=== PATIENT | male | born 1950 | race Hispanic/Latino ===

== ENCOUNTER 2018-08-27 16:09 | Emergency (ER) | payer OTHER, MEDICARE ==
[2018-08-27 17:53] LABS: BASOPHILS % (AUTO) 0.5 % (0.0-5.0); EOSINOPHILS % (AUTO) 0.6 % (0.0-8.0); HEMATOCRIT 46.8 % (42-54); LYMPHOCYTES % (AUTO) 18.2 % (21.0-51.0); MEAN CORPUSCULAR HEMOGLOBIN 29.8 pg (27.0-33.0); MEAN CORPUSCULAR HGB CONC 34.2 g/dL (32.0-36.0); MONOCYTES % (AUTO) 6.9 % (3.0-13.0); NEUTROPHILS % (AUTO) 73.8 % (40.0-77.0); NUCLEATED RED BLOOD CELLS 0.1 % (0.0-0.19); PLATELET COUNT (AUTO) 224 K/uL (130-400); RED BLOOD CELL COUNT(AUTO) 5.39 MIL/uL (4.50-6.20); RED CELL DISTRIBUTION WIDTH 13.3 % (11.0-15.5); WHITE BLOOD COUNT (AUTO) 10.6 K/uL (4.8-10.8)
[2018-08-27 18:01] LABS: APPEARANCE,URINE Cloudy (CLEAR); BILIRUBIN,URINE Negative (NEGATIVE); COLOR,URINE Red (YELLOW); GLUCOSE, URINE (UA) Negative (NEGATIVE); KETONES,URINE Negative (NEGATIVE); LEUKOCYTE ESTERASE ,URINE Moderate (NEGATIVE); NITRATE,URINE Negative (NEGATIVE); OCCULT BLOOD,URINE Large (NEGATIVE); PROTEIN,URINE 300 (NEGATIVE); UROBILINOGEN,URINE 0.2 mg/dL (0.2-1.0)
[2018-08-27 18:10] LABS: BACTERIA,URINE Few /HPF (None Seen); RBC,URINE Full Field /HPF (0-1); WBC,URINE 26-50 /HPF (0-1)
[2018-08-27 18:11] LABS: SQUAMOUS EPITHELIAL CELL,UR None Seen /HPF (0-2)
[2018-08-27 18:14] LABS: CREATININE 0.7 mg/dL (0.5-1.5); INR 0.97 (0.85-1.15); PARTIAL THROMBOPLASTIN TIME 29.2 SEC (26.3-35.5); POTASSIUM 3.1 mmol/L (3.5-5.1); PROTHROMBIN TIME 10.2 SEC (9.6-11.6)
[2018-08-27 18:19] LABS: ALBUMIN 3.8 g/dL (3.5-5.0); BILIRUBIN,TOTAL 0.4 mg/dL (0.2-1.0); TOTAL PROTEIN, SERUM 7.6 g/dL (6.0-8.3)
[2018-08-27] MEDS ORDERED: CEFTRIAXONE SODIUM 1 GM ONE (18:38)
[2018-08-27] MEDS ORDERED: POTASSIUM BICARB/CIT AC 25 MEQ TABLET.EFF ONE (19:14)
== END 2018-08-27 19:59 | disposition home or self-care (01) ==
LOC: EDH 16:09
DX: N13.30 Unspecified hydronephrosis (principal); E87.6 Hypokalemia; R31.9 Hematuria, unspecified; E11.9 Type 2 diabetes mellitus without complications; I10 Essential (primary) hypertension; Z87.442 Personal history of urinary calculi; Z98.890 Other specified postprocedural states; Z88.2 Allergy status to sulfonamides
CPT/HCPCS: 36415; 74176; 80053; 81001; 85025; 85610; 85730; 87088; 96374; 99284; J0696

== ENCOUNTER 2019-10-17 13:47 | Emergency (ER) | payer OTHER ==
[~2019-10-17 13:47] MED LIST: BACL20TA PO; CLON0.2T PO; FERR325T22 PO; GLIM2TAB30 PO; LISI40TA4 PO; METF-444 PO; NITR100C PO; SIMV40TA59 PO; TAMS-1 PO
[2019-10-17] MEDS ORDERED: NAPROXEN 500 MG TABLET ONE (15:11)
== END 2019-10-17 15:43 | disposition home or self-care (01) ==
LOC: EDH 13:47
DX: S63.8X1A Sprain of other part of right wrist and hand, initial encounter (principal); E11.9 Type 2 diabetes mellitus without complications; I10 Essential (primary) hypertension; Z88.0 Allergy status to penicillin; X50.1XXA Overexertion from prolonged static or awkward postures, initial encounter; Y93.89 Activity, other specified; Y92.098 Other place in other non-institutional residence as the place of occurrence of the external cause; Y99.8 Other external cause status
CPT/HCPCS: 73130

== ENCOUNTER → 2019-11-13 | Outpatient (CLI) | payer OTHER | END | disposition home or self-care (01) | LOC: RAH 15:09 | PROVIDERS: ATTEND Family Medicine | DX: N28.1 Cyst of kidney, acquired (principal); N13.30 Unspecified hydronephrosis; N40.0 Benign prostatic hyperplasia without lower urinary tract symptoms; Z87.440 Personal history of urinary (tract) infections | CPT/HCPCS: 76770 ==

== ENCOUNTER → 2020-02-19 | Outpatient (CLI) | payer OTHER | END | disposition home or self-care (01) | LOC: RAH 13:18 | PROVIDERS: ATTEND Family Medicine | DX: N50.3 Cyst of epididymis (principal); N43.3 Hydrocele, unspecified | CPT/HCPCS: 76870 ==

== ENCOUNTER 2020-05-10 06:19 | Day surgery (SDC) | payer OTHER, MEDICARE ==
[2020-05-07 12:04] LABS: BASOPHILS % (AUTO) 0.6 % (0.0-5.0); EOSINOPHILS % (AUTO) 2.8 % (0.0-8.0); HEMATOCRIT 43.4 % (42-54); LYMPHOCYTES % (AUTO) 32.8 % (21.0-51.0); MEAN CORPUSCULAR HEMOGLOBIN 29.4 pg (27.0-33.0); MEAN CORPUSCULAR HGB CONC 32.7 g/dL (32.0-36.0); MEAN CORPUSCULAR VOLUME 89.9 fL (79-99); MONOCYTES % (AUTO) 8.2 % (3.0-13.0); NEUTROPHILS % (AUTO) 55.3 % (40.0-77.0); PLATELET COUNT (AUTO) 241 K/uL (130-400); RED BLOOD CELL COUNT(AUTO) 4.83 MIL/uL (4.50-6.20); RED CELL DISTRIBUTION WIDTH 13.4 % (11.0-15.5); WHITE BLOOD COUNT (AUTO) 6.8 K/uL (4.8-10.8)
[2020-05-07 12:40] LABS: CREATININE 0.8 mg/dL (0.5-1.5); POTASSIUM 3.8 mmol/L (3.5-5.1)
[2020-05-09 11:43] VITALS: BP 143/75
[~2020-05-10] VITALS: Ht 170.2 cm; Wt 82.2 kg
[2020-05-10] VITALS (18 sets, daily range): BP systolic 137–173; BP diastolic 75–98
[~2020-05-10 06:19] MED LIST changes: +ALFUZOSIN PO; +ASPI-1197 PO; -BACL20TA PO; +CEFTRIAXONE SODIUM 1 GM IVP SCH; -CLON0.2T PO; -FERR325T22 PO; -NITR100C PO; -SIMV40TA59 PO; -TAMS-1 PO
[2020-05-10] MEDS ORDERED: LIDOCAINE PF 2% 5ML ABBOJECT ONE (08:17)
[2020-05-10] MEDS ORDERED: FENTANYL CITRATE PF 50 MCG/1 ML 2ML VIAL ONE (08:17)
[2020-05-10] MEDS ORDERED: SUCCINYLCHOLINE 200MG/10ML SYR ONE (08:17)
[2020-05-10] MEDS ORDERED: ROCURONIUM 10MG/1ML SYR 10 MG/ML ML ONE (08:17)
[2020-05-10] MEDS ORDERED: PROPOFOL 10 MG/ML 20ML VIAL IV ONE (08:17)
[2020-05-10] MEDS ORDERED: NEOSTIGMINE 5MG/5ML SYR IV ONE (09:22)
[2020-05-10] MEDS ORDERED: GLYCOPYRROLATE 1 MG/5 ML SYRINGE ONE (09:22)
[2020-05-10] MEDS ORDERED: KETOROLAC TROMETHAMINE 30MG/ML ONE (09:24)
[2020-05-10] MEDS ORDERED: OPIUM/BELLADONNA ALKALOIDS 1 EACH SUPP.RECT RC ONE (09:30)
[2020-05-10] MEDS ORDERED: PHENAZOPYRIDINE HCL 200 MG TABLET ONE (11:21)
== END 2020-05-10 11:55 | disposition home or self-care (01) ==
LOC: DAH 06:19
PROVIDERS: ATTEND Urology
DX: N40.1 Benign prostatic hyperplasia with lower urinary tract symptoms (principal); R39.14 Feeling of incomplete bladder emptying; N30.20 Other chronic cystitis without hematuria; Z20.828 Contact with and (suspected) exposure to other viral communicable diseases; F17.210 Nicotine dependence, cigarettes, uncomplicated; I10 Essential (primary) hypertension; E11.9 Type 2 diabetes mellitus without complications; K57.30 Diverticulosis of large intestine without perforation or abscess without bleeding; Z88.2 Allergy status to sulfonamides; Z79.84 Long term (current) use of oral hypoglycemic drugs; Z79.899 Other long term (current) drug therapy
CPT/HCPCS: 36415; 52648; 80048; 82948 ×3; 85025; 93005; A4215; A4221; A4222; A4223; A4340; A4354; A4358; A4663; C9803; J0330; J0696; J1885; J2001; J2704; J2710; J3010; J3490; J7120; U0003

== ENCOUNTER 2020-08-02 19:13 | Emergency (ER) | payer OTHER, MEDICARE ==
[~2020-08-02 19:13] MED LIST changes: -ASPI-1197 PO; -CEFTRIAXONE SODIUM 1 GM IVP SCH
[2020-08-02] MEDS ORDERED: ACETAMINOPHEN EXTRA STRENGTH 500 MG TABLET ONE (19:28)
[2020-08-02] MEDS ORDERED: SODIUM CHLORIDE 0.9% 1000ML 2,000 ML IV ONE (19:47)
[2020-08-02 19:55] LABS: BASOPHILS % (AUTO) 0.1 % (0.0-5.0); HEMATOCRIT 42.4 % (42-54); LYMPHOCYTES % (AUTO) 4.5 % (21.0-51.0); MEAN CORPUSCULAR HEMOGLOBIN 28.7 pg (27.0-33.0); MEAN CORPUSCULAR VOLUME 86.9 fL (79-99); PLATELET COUNT (AUTO) 194 K/uL (130-400); RED BLOOD CELL COUNT(AUTO) 4.88 MIL/uL (4.50-6.20); RED CELL DISTRIBUTION WIDTH 13.7 % (11.0-15.5); WHITE BLOOD COUNT (AUTO) 16.6 K/uL (4.8-10.8)
[2020-08-02 20:03] LABS: CARBON DIOXIDE 27 mmol/L (21-32); CHLORIDE 99 mmol/L (101-111); GLOMERULAR FILTR. RATE CALC 78 mL/min (>60); GLUCOSE,RANDOM 155 mg/dL (70-105); POTASSIUM 3.5 mmol/L (3.5-5.1); SODIUM SERUM 136 mmol/L (136-145); UREA NITROGEN, BLOOD 15 mg/dL (7-18)
[2020-08-02 20:08] LABS: PARTIAL THROMBOPLASTIN TIME 31.7 SEC (26.3-35.5); PROTHROMBIN TIME 10.8 SEC (9.6-11.6)
[2020-08-02 20:14] LABS: ALANINE AMINOTRANSFERASE 21 U/L (12-78); ALBUMIN 3.1 g/dL (3.5-5.0); ASPARTATE AMINOTRANSFERASE 15 U/L (10-37); BILIRUBIN,TOTAL 0.6 mg/dL (0.2-1.0); CREATINE KINASE, TOTAL 88 U/L (21-232); MYOGLOBIN 122 ng/mL (10-92); TOTAL PROTEIN, SERUM 7.4 g/dL (6.0-8.3); TROPONIN I < 0.04 ng/mL (0.00-0.06)
[2020-08-02 20:14] LABS: APPEARANCE,URINE Cloudy (CLEAR); BILIRUBIN,URINE Negative (NEGATIVE); COLOR,URINE Yellow (YELLOW); GLUCOSE, URINE (UA) 250 mg/dL (NEGATIVE); KETONES,URINE 15 mg/dL (NEGATIVE); LEUKOCYTE ESTERASE ,URINE Moderate (NEGATIVE); NITRATE,URINE Positive (NEGATIVE); OCCULT BLOOD,URINE Moderate (NEGATIVE); PROTEIN,URINE POS 2+ mg/dL (NEGATIVE); UROBILINOGEN,URINE 0.2 mg/dL (0.2-1.0)
[2020-08-02 20:24] LABS: BACTERIA,URINE Few /HPF (None Seen); SQUAMOUS EPITHELIAL CELL,UR Rare /HPF (0-2)
[2020-08-02] MEDS ORDERED: CEFTRIAXONE SODIUM 1 GM ONE (21:09)
== END 2020-08-02 21:29 | disposition home or self-care (01) ==
LOC: EDH 19:13
DX: N30.00 Acute cystitis without hematuria (principal); R50.9 Fever, unspecified; E11.9 Type 2 diabetes mellitus without complications; I10 Essential (primary) hypertension; Z87.891 Personal history of nicotine dependence; Z88.2 Allergy status to sulfonamides
CPT/HCPCS: 36415; 71045; 80053; 81001; 82550; 83605; 83874; 84145; 84484; 85025; 85610; 85730; 86900; 86901; 87040 ×2; 87077; 87088; 87186; 93005; 96374; 99285; J0696; J7030

== ENCOUNTER 2020-08-12 11:05 | Emergency (ER) | payer OTHER, MEDICARE ==
[2020-08-12] MEDS ORDERED: TETANUS/DIPHTHERIA TOXOID [ADULT] 0.5 ML VIAL IM ONE (14:55)
[2020-08-29] MEDS ORDERED: BACL20TA PO (13:50)
[2020-08-29] MEDS ORDERED: IBUP-2070 PO (13:50)
[2020-08-29] MEDS ORDERED: METF-446 PO (13:50)
== END 2020-08-12 16:56 | disposition home or self-care (01) ==
LOC: EDH 11:05
DX: S62.327A Displaced fracture of shaft of fifth metacarpal bone, left hand, initial encounter for closed fracture (principal); T22.212A Burn of second degree of left forearm, initial encounter; X10.1XXA Contact with hot food, initial encounter; T31.0 Burns involving less than 10% of body surface; E11.9 Type 2 diabetes mellitus without complications; I10 Essential (primary) hypertension; Z72.0 Tobacco use; Z88.2 Allergy status to sulfonamides; W01.0XXA Fall on same level from slipping, tripping and stumbling without subsequent striking against object, initial encounter; Y93.89 Activity, other specified; Y92.89 Other specified places as the place of occurrence of the external cause; Y99.8 Other external cause status
CPT/HCPCS: 16020; 29125; 73130; 90471; 90714

== ENCOUNTER 2020-09-02 08:56 | Day surgery (SDC) | payer OTHER, MEDICARE ==
[2020-08-29 11:31] LABS: BASOPHILS % (AUTO) 0.5 % (0.0-5.0); HEMATOCRIT 44.9 % (42-54); LYMPHOCYTES % (AUTO) 17.6 % (21.0-51.0); MEAN CORPUSCULAR HEMOGLOBIN 28.7 pg (27.0-33.0); MEAN CORPUSCULAR HGB CONC 32.3 g/dL (32.0-36.0); MEAN CORPUSCULAR VOLUME 88.9 fL (79-99); MONOCYTES % (AUTO) 6.7 % (3.0-13.0); NEUTROPHILS % (AUTO) 72.8 % (40.0-77.0); PLATELET COUNT (AUTO) 264 K/uL (130-400); RED BLOOD CELL COUNT(AUTO) 5.05 MIL/uL (4.50-6.20); RED CELL DISTRIBUTION WIDTH 14.7 % (11.0-15.5); WHITE BLOOD COUNT (AUTO) 11.2 K/uL (4.8-10.8)
[2020-08-29 11:41] LABS: CREATININE 0.7 mg/dL (0.5-1.5); POTASSIUM 3.9 mmol/L (3.5-5.1)
[2020-08-29 13:45] VITALS: BP 153/83
[~2020-09-02] VITALS: Ht 167.6 cm; Wt 78.4 kg
[2020-09-02] VITALS (16 sets, daily range): BP systolic 121–149; BP diastolic 68–81
[~2020-09-02 08:56] MED LIST changes: +BACL20TA PO; -GLIM2TAB30 PO; +IBUP-2070 PO; -METF-444 PO; +METF-446 PO
[2020-09-02] MEDS ORDERED: SODIUM CHLORIDE 0.9% 1000ML 1,000 ML IV ONE (10:28)
[2020-09-02] MEDS: CEFAZOLIN SODIUM 1 GM VIAL IVP SCH ×2 (11:00→16:00)
[2020-09-02] MEDS ORDERED: CEFAZOLIN SODIUM 1 GM VIAL ONE (15:30)
[2020-09-02] MEDS ORDERED: DEXAMETHASONE SOD PHOSPHATE 10MG/ML 1ML VIAL ONE (15:46)
[2020-09-02] MEDS ORDERED: LIDOCAINE PF 2% 5ML ABBOJECT ONE (15:46)
[2020-09-02] MEDS ORDERED: ONDANSETRON HCL 4 MG/2 ML VIAL ONE (15:46)
[2020-09-02] MEDS ORDERED: PROPOFOL 10 MG/ML 20ML VIAL IV ONE (15:47)
[2020-09-02] MEDS ORDERED: MIDAZOLAM HCL 1 MG/ML 2ML VIAL ONE (15:47)
[2020-09-02] MEDS ORDERED: ROCURONIUM 10MG/1ML SYR 10 MG/ML ML ONE (15:47)
[2020-09-02] MEDS ORDERED: FENTANYL CITRATE PF 50 MCG/1 ML 2ML VIAL ONE (15:47)
[2020-09-02] MEDS ORDERED: EPHEDRINE SULFATE 50 MG/ML AMPULE ONE (16:27)
[2020-09-02] MEDS ORDERED: GLYCOPYRROLATE 1 MG/5 ML SYRINGE ONE (17:41)
[2020-09-02] MEDS ORDERED: NEOSTIGMINE 5MG/5ML SYR IV ONE (17:41)
[2020-09-02] MEDS ORDERED: ACET1TAB25 PO (17:54)
[2020-09-02] MEDS ORDERED: CEPH500C2 PO (17:54)
== END 2020-09-02 19:25 | disposition home or self-care (01) ==
LOC: DAH 08:56
PROVIDERS: ATTEND Orthopaedic Surgery
DX: S62.327A Displaced fracture of shaft of fifth metacarpal bone, left hand, initial encounter for closed fracture (principal); Z20.828 Contact with and (suspected) exposure to other viral communicable diseases; I10 Essential (primary) hypertension; E66.9 Obesity, unspecified; F17.210 Nicotine dependence, cigarettes, uncomplicated; E11.9 Type 2 diabetes mellitus without complications; Z90.79 Acquired absence of other genital organ(s); Z98.890 Other specified postprocedural states; Z79.899 Other long term (current) drug therapy; Z79.84 Long term (current) use of oral hypoglycemic drugs; Z83.3 Family history of diabetes mellitus; W19.XXXA Unspecified fall, initial encounter; Y93.89 Activity, other specified; Y92.098 Other place in other non-institutional residence as the place of occurrence of the external cause
CPT/HCPCS: 26615; 36415; 73130; 80048; 82948 ×2; 85025; 93005; A4215; A4216; A4221; A4222; A4223 ×2; A4565; A4649 ×5; A4663; A4930 ×2; A6223; C1713 ×6; C1776; C9803; J0690 ×2; J1100; J2001; J2250; J2405; J2704; J2710; J3010; J3490 ×2; J7030; Q4051; U0003

== ENCOUNTER → 2022-11-05 | Outpatient (CLI) | payer OTHER, MEDICARE ==
[~2022-11-05] MED LIST changes: +ACET-2079 PO; +CEPH500C2 PO; -LISI40TA4 PO; +LISI40TA9 PO
[2022-11-05 16:25] LABS: CREATININE 0.9 mg/dL (0.5-1.5); POTASSIUM 4.5 mmol/L (3.5-5.1)
== END | disposition home or self-care (01) ==
LOC: LAB 15:18
PROVIDERS: ATTEND Internal Medicine
DX: N13.1 Hydronephrosis with ureteral stricture, not elsewhere classified (principal)
CPT/HCPCS: 36415; 80048

== ENCOUNTER → 2022-11-06 | Outpatient (CLI) | payer OTHER, MEDICARE ==
[~2022-11-06] MED LIST changes: +IOHEXOL 350 MG/ML 100ML INFUS..BTL IV ONE
== END | disposition home or self-care (01) ==
LOC: RAH 08:48
PROVIDERS: ATTEND Internal Medicine
DX: N13.1 Hydronephrosis with ureteral stricture, not elsewhere classified (principal); N40.0 Benign prostatic hyperplasia without lower urinary tract symptoms; R31.0 Gross hematuria; Z98.890 Other specified postprocedural states
CPT/HCPCS: 74178; Q9967

== ENCOUNTER → 2023-03-26 | Outpatient (CLI) | payer OTHER, MEDICARE | END | disposition home or self-care (01) | LOC: RAH 10:00 | PROVIDERS: ATTEND Internal Medicine Gastroenterology | DX: N40.0 Benign prostatic hyperplasia without lower urinary tract symptoms (principal); N28.89 Other specified disorders of kidney and ureter; K63.2 Fistula of intestine | CPT/HCPCS: 74177; Q9967 ==

== ENCOUNTER → 2023-06-04 | Outpatient (CLI) | payer OTHER, MEDICARE ==
[~2023-06-04] MED LIST changes: -IOHEXOL 350 MG/ML 100ML INFUS..BTL IV ONE
== END | disposition home or self-care (01) ==
LOC: RAH 12:48
PROVIDERS: ATTEND Internal Medicine
DX: I13.10 Hypertensive heart and chronic kidney disease without heart failure, with stage 1 through stage 4 chronic kidney disease, or unspecified chronic kidney disease (principal); N18.9 Chronic kidney disease, unspecified; I35.8 Other nonrheumatic aortic valve disorders; I70.203 Unspecified atherosclerosis of native arteries of extremities, bilateral legs; E11.51 Type 2 diabetes mellitus with diabetic peripheral angiopathy without gangrene; R25.2 Cramp and spasm; F17.200 Nicotine dependence, unspecified, uncomplicated; R60.9 Edema, unspecified
CPT/HCPCS: 93306; 93925

== ENCOUNTER 2024-10-07 11:08 | Emergency (ER) | payer OTHER, MEDICARE ==
[~2024-10-07] VITALS: Ht 170.2 cm; Wt 83.9 kg
--- NOTE | 2024-10-07 11:42 | ERN ---
ED Note History of Present Illness Stated Complaint: BACK PAIN Chief Complaint: Rib Pain Time Seen by MD: 11:14 Time Seen by Midlevel: 11:30 Dictation: Mr. Ramesh is a 74-year-old gentleman with history of hypertension, hyperlipidemia, nicotine dependence, and type 2 diabetes who presented to the emergency department this morning for evaluation of rib pain. He reports three days of right lateral chest/rib pain. He states he had no fall/trauma but he did possibly over exert himself shoveling dirt at his residence. He states pain is not gotten better and it hurts to take a deep breath. He denies having any anterior chest pain, cough, shortness of breath, abdominal pain, nausea, vomiting, diarrhea, dysuria, diaphoresis, headache, or dizziness. Allergies: Coded Allergies: Sulfa (Sulfonamide Antibiotics) (Verified Allergy, Unknown, 11/02/19) Home Meds Active Scripts Acetaminophen with Codeine (Acetaminophen-Cod #3 Tablet) 1 Each Tablet, 1-2 EACH PO Q6HPRN PRN for pain, #40 TAB Prov:AUGIE DONATO MD 09/02/20 Cephalexin (Cephalexin) 500 Mg Capsule, 500 MG PO Q8H, #7 CAP Prov:AUGIE DONATO MD 09/02/20 Reported Medications Ibuprofen (Ibuprofen) 600 Mg Tablet, 600 MG PO AM PRN for PAIN, TAB 08/29/20 Baclofen (Baclofen) 20 Mg Tablet, 20 MG PO TIDP PRN for PAIN, TAB 08/29/20 Metformin HCl (Metformin HCl) 1,000 Mg Tablet, 1000 MG PO BID, TAB 08/29/20 [Alsuzosin] No Conflict Check, 10 MG PO DAILY 05/09/20 Lisinopril (Lisinopril) 40 Mg Tablet, 40 MG PO DAILY, TAB 08/30/19 Past Medical History Past Medical History: Diabetes-Type II, Hypertension Surgical History: None PSYCH History: no pertinent psych hx Social History: Smokers (smokes 5-6 cigarettes/day) RN Note Reviewed/Agreed w/PFSH: Yes Review of System Dictation REVIEW OF SYSTEMS: CONSTITUTIONAL: Patient denies fevers, chills, sweats and weight changes. EYES: Patient denies any visual symptoms. EARS, NOSE, AND THROAT: No difficulties with hearing. No symptoms of rhinitis or sore throat. CARDIOVASCULAR: Patient denies chest pains, palpitations, orthopnea and paroxysmal nocturnal dyspnea. RESPIRATORY: No dyspnea on exertion, no wheezing or cough. Reports right rib pain; pain with deep inspiration or cough. States he is a smoker; smokes 5-6 cigarettes per day GI: No nausea, vomiting, diarrhea, constipation, abdominal pain, hematochezia or melena. : No urinary hesitancy or dribbling. No nocturia or urinary frequency. No abnormal urethral discharge. MUSCULOSKELETAL: No myalgias or arthralgias. NEUROLOGIC: No chronic headaches, no seizures. Patient denies numbness, tingling or weakness. PSYCHIATRIC: Patient denies problems with mood disturbance. No problems with anxiety. ENDOCRINE: No excessive urination or excessive thirst. DERMATOLOGIC: Patient denies any rashes or skin changes. Initial Vital Sign VS Vital Signs Date Time Temp Pulse Resp B/P (MAP) Pulse Ox O2 Delivery O2 Flow Rate FiO2 10/07/24 11:10 98.2 91 20 163/89 97 Room Air 0 10/07/24 11:13 21 Physical Exam Dictation Vital signs: Reviewed. Afebrile Constitutional: No acute distress. Non-toxic appearing. Head/Face: Normocephalic, atraumatic. Eyes: Periorbital areas with no swelling, redness, or edema. Lids and lashes are normal. Conjunctival injection is absent. Sclera anicteric. Pupils equal, round, reactive to light. ENT: Pinnas intact and no signs of trauma or erythema. Ear canals clear and no discharge. TMs no erythema. No nasal discharge or bleeding noted. Oropharynx with no exudate, redness, swelling, masses, exudates, or evidence of obs truction. Uvula midline. Mucous membranes moist. Neck: Trachea midline, no masses palpated, and no cervical lymphadenopathy. No swelling. Supple, full range of motion. Chest/Axilla: No tenderness, no crepitus, no paradoxical movement, no retractions. Cardiovascular: Regular rate, regular rhythm, no murmur, no gallops. Symmetric pulses. No peripheral edema. Respiratory: Respirations even and unlabored. Lung sounds clear; no wheezes, rales or rhonchi. Room air SpO2 98% there is no crepitus to chest wall. But tenderness right lower ribs. Gastrointestinal: Inspection is normal. No distention is appreciated. Bowel sounds are normal. No mass or organomegaly . There is no tenderness. No rebound. No rigidity. No voluntary or involuntary guarding. No Lord's sign. Neurological: Normal speech, gross motor function intact, gross sensory function intact. No focal weakness/Paresthesia. Musculoskeletal/Extremities: All extremities have full range of motion, no pain or tenderness on palpation. Symmetric pulses. Integumentary: Intact. Skin is normal color, warm and dry. Cap refill less than 3 seconds. Results (Laboratory/Radiology) EKG Comment: EKG Interpretation: Time Reviewed: 115 Normal sinus rhythm Ventricular rate: 68 bpm LA Interval: 206 ms QRS duration: [address] segment elevation or depression. Clinical impression: Sinus rhythm EKG Reviewed and interpreted by: Dr. Waters X-RAY Comment: PATIENT: LINDSAY RAMESH MR#: [id number] : 1950 SEX: M AGE: 74 LOCATION: [facility] ORDER [id number] STATUS: [facility] ER REPORT#: [id number] SERVICE [id number] REASON: pain right ribs ORDERING PHYSICIAN: JOSE HICKMAN NP PROCEDURE: CXR2VW - CHEST 2VWS CHEST 2VWS CLINICAL HISTORY: pain right ribs COMPARISON: None TECHNIQUE: Two views of the chest were obtained. FINDINGS: There is stable nodule in the left lung. The lungs are otherwise clear. The cardiac size and mediastinum are unremarkable. There is mild stable degenerative changes of spine. IMPRESSION: No acute cardiopulmonary process identified. DICTATED BY: DAYAN ONTIVEROS DO DATE: 10/07/24 1430 ELECTRONICALLY SIGNED BY: DAYAN ONTIVEROS DO DATE: 10/07/24 1432 ED Course ED Course Orders Procedure Category Date Status Time 12 Lead Ekg Tracing- EKG 10/07/24 Resulted Technical 11:39 Chest 2vws RAD 10/07/24 Resulted 11:39 Ketorolac PHA 10/07/24 Complete Tromethamine 30mg/Ml 12:00 Current Medications Medications (Trade) Dose Ordered Sig/Obed Route PRN Reason Start Time Stop Time Status Last Admin Dose Admin Ketorolac Tromethamine (toRADol) 30 mg ONCE ONCE IM 10/07/24 12:00 10/07/24 12:01 DC 10/07/24 13:34 Vital Signs Date Time Temp Pulse Resp B/P (MAP) Pulse Ox O2 Delivery O2 Flow Rate FiO2 10/07/24 12:19 98.2 90 20 160/85 98 Room Air* 0 21 10/07/24 11:13 98.2 91 20 163/89 97 Room Air* 0 21 10/07/24 11:10 98.2 91 20 163/89 97 Room Air 0 Uneventful ED course. Vital signs are stable; afebrile with room air SpO2 97- 98%. Twelve lead EKG reflects a sinus rhythm without ST elevation or depression. Chest x-ray unremarkable; no rib fractures noted. He received dose Toradol and states he is feeling better. Medical Decision Making MDM MDM: Differential diagnosis: rib fracture, pneumonia, contusion Rationale: Tests considered and ordered secondary to shared decision making include: Previous outside records reviewed: Old ER visits. Risk of complication and/or morbidity or mortality of patient management: None Medications-Per medication reconciliation Need for hospitalization: Patient does not meet criteria for hospitalization. Need for emergency major/minor surgery: No There are no social concerns with this patient. Prescription drug management: Ibuprofen Prescriptions will include symptomatic care Patient's prior external medical records from other ER visits were reviewed by me as indicated. Prior testing and results from previous visits were reviewed. Prior tests were taken into account with medical decision making and resource utilization, independent historian/historians were used to obtain complete medical history. I independently interpreted the test that were performed, results were reviewed by me and considered findings on radiology if ordered. Medical management and examination interpretation discussions were had by me with other qualified healthcare professionals as indicated for the patient's care. DX & DISP Disposition: Discharge Departure Impression: Primary Impression: Contusion of rib on right side Condition: Stable Scripts Ibuprofen (Ibuprofen) 600 Mg Tablet 600 MG PO Q6H PRN for PAIN, #15 TAB 0 Refills Prov: JOSE HICKMAN SENIOR STATISTICAL PROGRAMMER 10/07/24 Additional Instructions: Rest. Avoid strenuous activity. Do coughing and deep breathing exercises. Take ibuprofen every 6 hours as needed for discomfort; take with food. Follow up with your primary care physician. Return to the emergency department for worsening of symptoms or concerns. Referrals: JACOB HILTON MD (PCP) Time of Disposition: 15:38 JOSE HICKMAN NP Oct 07, 2024 11:42
--- NOTE | 2024-10-07 11:58 | EKG ---
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
[2024-10-07] MEDS: ketOROlac 30MG VIAL (30MG/ML) IM ONE (13:34)
--- NOTE | 2024-10-07 14:32 | HMCIMG ---
CHEST 2VWS CLINICAL HISTORY: pain right ribs COMPARISON: None TECHNIQUE: Two views of the chest were obtained. FINDINGS: There is stable nodule in the left lung. The lungs are otherwise clear. The cardiac size and mediastinum are unremarkable. There is mild stable degenerative changes of spine. IMPRESSION: No acute cardiopulmonary process identified.
[2024-10-07] MEDS ORDERED: IBUP-2070 PO (15:38)
[2024-10-07 15:45] VITALS: BP 158/89; PULSE 64; RESP 18; TEMP 98.7; O2SAT 98
== END 2024-10-07 15:51 | disposition home or self-care (01) ==
LOC: EDH 11:08
DX: S20.211A Contusion of right front wall of thorax, initial encounter (principal); E11.9 Type 2 diabetes mellitus without complications; I10 Essential (primary) hypertension; F17.210 Nicotine dependence, cigarettes, uncomplicated; Z79.84 Long term (current) use of oral hypoglycemic drugs; Z79.899 Other long term (current) drug therapy; Z88.2 Allergy status to sulfonamides; W01.0XXA Fall on same level from slipping, tripping and stumbling without subsequent striking against object, initial encounter; Y93.89 Activity, other specified; Y92.89 Other specified places as the place of occurrence of the external cause; Y99.8 Other external cause status
CPT/HCPCS: 99283; 71046; 96372; 93005; J1885